=== PATIENT | female | born 1960 | race Caucasian/White ===

== ENCOUNTER 2017-01-11 05:47 | Day surgery (SDC) | payer OTHER ==
[2017-01-10 11:08] VITALS: Ht 167.6 cm; Wt 91.5 kg
[~2017-01-11] VITALS: Ht 167.6 cm; Wt 91.5 kg
[2017-01-11] VITALS (12 sets, daily range): BP systolic 110–166; BP diastolic 61–80; PULSE 54–88; RESP 4–18
[~2017-01-11 05:47] MED LIST: AMLODIPINE; ATORVASTATIN PO; CEFAZOLIN 2 GM/50 ML (PMX) 50 ML IVPB ONE; OMEPRAZOLE PO; TRAMADOL PO; ZOLOFT PO
[2017-01-11] MEDS ORDERED: ATOR10TA65 PO (06:47)
[2017-01-11] MEDS ORDERED: OMEP40CA6 PO (06:47)
[2017-01-11] MEDS ORDERED: LOSA1TAB19 PO (06:47)
[2017-01-11] MEDS ORDERED: ASPI-664 PO (06:47)
[2017-01-11] MEDS ORDERED: MIRT15TA5 PO (06:47)
[2017-01-11] MEDS ORDERED: TRAM50TA2 PO (06:47)
[2017-01-11] MEDS ORDERED: CLON0.5T4 PO (06:47)
[2017-01-11] MEDS ORDERED: LIDOCAINE 2% (SDV) 5 ML INJ ONE (07:00)
[2017-01-11] MEDS ORDERED: CEFAZOLIN 1 GM INJ ONE (07:00)
[2017-01-11] MEDS ORDERED: PROPOFOL 100 ML ONE (07:30)
[2017-01-11] MEDS ORDERED: MIDAZOLAM 1 MG/ML 2 ML INJ ONE (07:33)
[2017-01-11] MEDS ORDERED: HYDROmorphONE (0.2 MG/ML) 10ML SYG IV PRN ×3 (08:00)
[2017-01-11] MEDS ORDERED: hydrALAzine 20 MG INJ IV PRN (08:00)
[2017-01-11] MEDS ORDERED: FENTAnyl 50 MCG/ML VIAL IV PRN ×3 (08:00)
[2017-01-11] MEDS ORDERED: OXYCODONE/ACETAMINOPHEN (5/325) TAB PO PRN ×2 (08:00)
[2017-01-11] MEDS ORDERED: LABETALOL HCL 20MG INJ IV PRN (08:00)
[2017-01-11] MEDS ORDERED: MEPERIDINE 25 MG INJ IV PRN (08:00)
[2017-01-11] MEDS ORDERED: EPHEDrine SULFATE 50 MG/5 ML SYG IV PRN (08:00)
[2017-01-11] MEDS ORDERED: ONDANSETRON 4 MG INJ IV PRN (08:00)
--- NOTE | 2017-01-11 08:26 | RADRPT ---
PROCEDURE: XR Chest. CLINICAL INDICATION: Preop, ovarian cyst, fibroid TECHNIQUE: AP view of the chest was obtained. COMPARISON: None. FINDINGS: The cardiomediastinal silhouette is within normal limits. The lungs are clear. No pleural effusion or pneumothorax is evident. The visualized osseous structures are unremarkable. IMPRESSION: No evidence of active cardiopulmonary disease. RPTAT: VV .Mainor Spaulding MD, MD Date Time Electronically viewed and signed by .Mainor Spaulding MD, on 01/11/2017 08:25 .O/
[2017-01-11] MEDS ORDERED: MEPERIDINE 100 MG INJ ONE ×2 (08:29)
[2017-01-11] MEDS ORDERED: DEXAMETHASONE 4 MG/ML 1 ML INJ ONE (08:31)
[2017-01-11] MEDS ORDERED: ONDANSETRON 4 MG INJ ONE (08:46)
--- NOTE | 2017-01-11 10:29 | OPR ---
DATE OF OPERATION: PREOPERATIVE DIAGNOSIS: Postmenopausal woman with thick endometrial echo complex. POSTOPERATIVE DIAGNOSIS: Endometrial polyp. OPERATION PERFORMED: D and C, hysteroscopy, polypectomy using Medtronic Gibson and Nephew device. SURGEON: Dr. Newell ESTIMATED BLOOD LOSS: Minimal. COMPLICATIONS: None. FINDINGS: A 2-cm soft endometrial polyp. Otherwise the tissue in the endometrial cavity was hyperp lastic. CONSENT: Please see preop H and P for the consent process. DESCRIPTION OF PROCEDURE: She was taken to the operating room and general anesthesia was induced. She was prepped and draped in the usual sterile fashion, without any complications. Surgical time-o ut was done. The patient was identified, procedure identified, and all staff agreed and we started the procedure with bimanual examination which revealed a large sized uterus, consistent with a fibro id uterus. The cervix was very stenotic and difficult to dilate, but we performed hydrodilation and identified the endometrial polyp as described above. The Medtronic resectoscope was used to resect the polyp completely, which was very effective. I used the Medtronic resectoscope to also perform a D and C and I performed a traditional D and C by scraping the entire diameter of the uterus as well . The patient tolerated the procedure well. All instruments were removed. There was no bleeding. Dictated By: ESTEFANIA ARCHIBALD/GUMARO Conf#: [id number] DID#: [id number]
--- NOTE | 2017-01-16 18:03 | RADRPT ---
Vent Rate: 55 bpm RR Interval: 0 msec VT Interval: 156 msec QRS Duration: 90 msec QT Interval: 482 msec QTC Interval: 461 msec P-R-T [place]: 40 - -3 - 78 degrees Sinus bradycardia Prolonged QT Abnormal ECG Electronically Signed By: Sharan Jacobs [id number]
== END 2017-01-11 10:48 | disposition home or self-care (01) ==
LOC: SDS 05:47
PROVIDERS: ATTEND Specialist
DX: N84.0 Polyp of corpus uteri (principal); N83.209 Unspecified ovarian cyst, unspecified side; D25.9 Leiomyoma of uterus, unspecified; I10 Essential (primary) hypertension; E03.9 Hypothyroidism, unspecified
CPT/HCPCS: 58558; 71010; 93005; J0690; J1100; J2175; J2250; J2405; J3010; Z7512; Z7610; 88305